=== PATIENT | male | born 1935 | race Two or more races ===

== ENCOUNTER 2018-11-27 23:29 | Emergency (ER) | payer OTHER ==
[~2018-11-27] VITALS: Ht 165.1 cm; Wt 61.2 kg
[2018-11-27] MEDS ORDERED: LASIX40 MG (23:57)
[2018-11-27] MEDS ORDERED: ELIQUIS2.5 MG (23:57)
[2018-11-27] MEDS ORDERED: COZAAR100 MG (23:58)
[2018-11-27] MEDS ORDERED: NORVASC5 MG (23:58)
[2018-11-27] MEDS ORDERED: ALLOPURINOL100 MG (23:59)
[2018-11-27] MEDS ORDERED: TAMS0.4C (23:59)
[2018-11-27] MEDS ORDERED: SYNTHROID100 MCG (23:59)
[2018-11-27] MEDS ORDERED: LODOSYN25 MG (23:59)
[2018-11-28] MEDS ORDERED: CATAPRES0.1 MG
[2018-11-28] MEDS ORDERED: LANTUS SOL100 UNIT/1
[2018-11-28] MEDS ORDERED: AMITIZA24 MCG (00:01)
[2018-11-28] MEDS ORDERED: TURMERIC500 M1 (00:01)
[2018-11-28] MEDS ORDERED: AFRIN15 ML NASAL (04:48)
== END 2018-11-28 05:30 ==
LOC: ER 23:29
DX: R04.0 Epistaxis (principal)